=== PATIENT | male | born 1980 ===

== ENCOUNTER → 2022-12-14 | Outpatient (CLI) | payer OTHER | END | disposition home or self-care (01) | LOC: LABPAT 14:27 | PROVIDERS: ATTEND Orthopaedic Surgery | DX: Z22.322 Carrier or suspected carrier of Methicillin resistant Staphylococcus aureus (principal); M43.16 Spondylolisthesis, lumbar region; M47.816 Spondylosis without myelopathy or radiculopathy, lumbar region; M48.061 Spinal stenosis, lumbar region without neurogenic claudication | CPT/HCPCS: 87070 ==

== ENCOUNTER 2022-12-20 09:14 | Inpatient (IN) | payer OTHER ==
[2022-12-15 10:21] VITALS: BMI 23.6
--- NOTE | 2022-12-20 06:56 | P.HPOR ---
History of Present Illness H&P Date: 12/14/22 .D:Date: 12/14/22 : 04:16pm .T:Title: *[facility]... COPY... Date of :[birth year] Allergies: Age: 42 year Height: 5'10" Weight: 170 lbs BMI: 24.39 kg/m2 Occupation: Tech VAS: 7 CHIEF COMPLAINT: 1 week pre operative appointment lumbar (L4-L5) Decompression and Fusion minimal invasive Two years prior. NA Duration of current treatment regiment: 2 years HISTORY : Xrays brought xrays from outside facility which were reviewed. No New xrays taken in office Trauma or injury yes work Work-Related yes Pain description dull, sharp, throbbing , increasing . Location posterior Activity Modification yes Hand Dominance right TREATMENTS COMPLETED: 6 weeks of PT completed? Month and Year of last PT date? Yes How many sessions? >20 Did it help? No Physician recommended home exercise completed? Duration of HEP course: yes Medications yes List: NOrco, Motrin, Tylenol, Flexeril, Gabapentin Alternative interventions Chiropractic: No Massage therapy: yes R.I.C.E: yes Brace: Yes How long was brace worn? *3 mo Did it help? No Injections Yes How many? Unknown Did they help? No RFA: No SUBJECTIVE: Today Mr. Adler presents to the office today for a pre operative appointment lumbar (L4-L5) Decompression and Fusion minimal invasive. The patient notes pain that radiates into the buttocks and bilateral lower extremities. He also notes numbness and tingling in bilateral lower extremities. Patient has trialed injections, electrostimulation, chiropractor, tens unit and acupuncture for pain with no relief. he takes norco and meloxicam for pain relief. He ambulates independently. He states it all started when he was on duty, he states the details of which are classified, but he sustained a violent twisting thowring type motion of a large weight that caused him to have severe pain. He has worked through it as much as possible. Seen multiple different specialist for it as well as surgeons. He has tried to put off surgery for as long as possible with shots, PT, medications but at this point cannot continue how he is. He denies any bowel or bladder issues. Denies any perineal numbness/tingling. This is significantly affecting his personal life. He can no longer run like he used to be able to and enjoyed. It is affecting his intimate relationship with his as he has pain while they engage in sexual activities. He cannot do his normal routine due to debility and pain. HP[: Today Mr. Adler presents to the office on 11/10/2022 for an evaluation regarding his lower back pain. The patient notes pain that radiates into the buttocks and bilateral lower extremities. He also notes numbness and tingling in bilateral lower extremities. Patient has trialed injections, electrostimulation, chiropractor, tens unit and acupuncture for pain with no relief. he takes norco and meloxicam for pain relief. He ambulates independently. He states it all started when he was on duty, he states the details of which are classified, but he sustained a violent twisting throwing type motion of a large weight that caused him to have severe pain. He has worked through it as much as possible. Seen multiple different specialist for it as well as surgeons. He has tried to put off surgery for as long as possible with shots, PT, medications but at this point cannot continue how he is. He denies any bowel or bladder issues. Denies any perineal numbness/tingling. This is significantly affecting his personal life. He can no longer run like he used to be able to and enjoyed. It is affecting his intimate relationship with his as he has pain while they engage in sexual activities. He cannot do his normal routine due to debility and pain. HISTORY: The patients' past social, medical, family, surgical history, as well as review of systems, have been reviewed. Please refer to the Neurosurgery History and Physical form that has been scanned in to our electronic medical record system. 16 points review of systems completed and as stated in HPI, all other systems reviewed are negative. P3 Social History: Smoking: never a smoker P3 Alcohol: occasional alcohol P3 Alcohol Amount: 1-2 drinks/wk P3 O4Cswyct History: Mother: alive & well. P2 Father: alive & well. P2 Sibling(s): alive & well. P2 P2 Past Medical History: P1 PAST MEDICAL HISTORY: HTN ASTHMA P1 Surgical / Procedural History: 3 2019, 2007, 2006 P1 P1 Current Medications: Rx: HYDROcodone 7.5 mg-acetaminophen 325 mg tablet Ref: 0 Instructions: take 1 tablet by oral route every 6 hours as needed for pain Rx: lisinopriL 10 mg-hydrochlorothiazide 12.5 mg tablet Ref: 0 Instructions: take 1 tablet by oral route once daily Rx: loratadine 10 mg tablet Ref: 0 Instructions: take 1 tablet (10 mg) by oral route once daily Rx: meloxicam 15 mg tablet Ref: 0 Instructions: take 1 tablet (15 mg) by oral route once daily P1 PHYSICALEXAMINATION: General: Awake, alert, appropriate for age, in no acute distress. HEENT: No unusual neck masses around region of lateral neck triangle, thyroid, supraclavicular groove Extremities: Skin warm and dry without acute lesions, coloration, temperature, skin intact, no tenderness or erythema Integument: Hairy patches: ABSENT Dorsal skin dimples: ABSENT Cafe au lait spots: ABSENT Surgical incisions: No back incisions Palpation: Please see Pain drawing on Intake sheet for further detail. Midline spinal tenderness: No E6 Cervical Tenderness: No E6 Paralumbar tenderness: Yes E6 Parathoracic tenderness: No E6 Buttocks tenderness: No E6 POSTURAL and MUSCULO-SKELETAL EVALUATION: Coronal Balance: NEUTRAL Recumbent testing: Patient is able to lay flat on back Sagittal Balance: NEUTRAL Shoulder Profile: LEVEL Pelvic Girdle: LEVEL Neck ROM: UNRESTRICTED Lumbar ROM: RESTRICTED due to pain Shoulder ROM: Symmetrical Hip ROM: Symmetrical Knee ROM: Symmetrical Hands: Normal appearance, symmetrical Feet: Normal appearance, Symmetrical VASCULAR STATUS : LEFT RIGHT Wrist Pulses INTACT INTACT Pedal Pulses (Dors. pedis & post.tibialis) INTACT INTACT Color NORMAL NORMAL Edema Absent Absent NEUROLOGIC EXAMINATION: Mental Status:Awake and alert, fully oriented, with normal attention, concentration and memory, and fluent, appropriate speech. Cranial Nerves: I: Olfactory not tested. II: Visual acuity normal, no visual field deficit noted with confrontation. III,IV: Normal pupillary reflexes & intact extraocular movements without nystagmus. V,: Intact symmetrical facial sensation. VII: Intact symmetrical facial motor movement VIII: Hearing intact. IX,X: Intact gag, swallow, & normal voice. XI: Sternocleidomastoid, trapezius function intact. XII: Tongue midline with normal movements. L'hermitte's Sign: Negative / absent Spurling'Sign: Absent bilaterally. Cubital percussion test: Absent bilaterally. Vitale-Tinel sign - Carpal region: Absent bilaterally. Straight Leg Raising: Pos on the Right Crossed straight leg raise: negative O8 MOTOR EXAM (0-5/5, N/T Muscle appearance: Symmetrical, without signs of atrophy or dystrophy UPPER EXTREMITY RIGHT LEFT Shoulder Abduction 5/5 5/5 Biceps 5/5 5/5 Triceps 5/5 5/5 Wrist Extension 5/5 5/5 Hand Intrnsics 5/5 5/5 Algebra Tutor 5/5 5/5 Hand and finger dexterity intact bilaterally? yes Disdiadochokinesis examination negative bilaterally? yes LOWER EXTREMITY RIGHT LEFT Hip Flexion 5/5 5/5 Knee Extension 5/5 5/5 Knee Flexion 4+/5 4+/5 Dorsiflexion 4+/5 4+/5 Plantarflexion 4+/5 4+/5 EHL 4+/5 4+/5 FHL 4+/5 4+/5 Toe heel walk / heel-toe walk intact while maintaining satisfactory balance? yes Squatting/straightening w/o assistance to a min of 60 degree knee flexion? No Single leg stance: Trendelenburg sign negative bilaterally REFLEXES(0-4/2, NT)Upper Extremity Lower Extremity Right 2 2 Left 2 2 Pathological Reflexes RIGHT LEFT Vitale's Absent Absent Clonus Absent Absent Babinski Absent Absent Sensory system (0-4, N/T) Test type RU ALIVIA RL LL Joint-Position 2 2 2 2 Vibration 2 2 2 2 Pain & LT sense 2 2 2 2 Dermatomal Deficit: None None S1 L5-S1 Gait and Functional Evaluation: Ambulatory aids: Independent Romberg's test: Intact bilaterally Steady/unsteady Gait RADIOGRAPHIC STUDIES: XRay taken on 11/14/22 of Lumbar Spine: Images reviewed. these demonstrate a grade 1 mobile spondylolisthesis at L4-L5. On flexion-extension films this translates from 3 mm in the neutral to 6 mm on flexion. This reduces on extension to around 2-1/2 mm. There is disc height collapse as well as facet arthrosis which is noted. There is questionable pars defects. There are no other fractures noted. Otherwise lumbar alignment is maintained with good lumbar lordosis. Segmentally at L4 5 there is kyphotic deformity. MRI scan from 09/14/2022 of Lumbar Spine performed at an outside facility: Images Reviewed in office with the patient. L1-2 unremarkable L2-3 unremarkable L3-4 unremarkable L4-5 severe spondylotic changes with disc height loss disc degeneration disc desiccation. Grade 1 spondylolisthesis partially reduced in the supine film facet arthrosis and overgrowth with bilateral foraminal as well as central stenosis related to the changes described L5-S1 minor spondylotic changes with fish mouthing and facet arthrosis Alignment: maintained other than spondylolisthesis Coronal alignment: Maintained Fracture: None Lesion: None IMPRESSION: It was my pleasure to have seen and examined Bobby. I reviewed the patient's clinical syndrome, physical findings, and imaging studies during the appointment today. It is my impression that the patient has a diagnosis of. 1. L4-L5 grade 1 spondylolisthesis, unstable 2. lower extremity radiculopathy with paresthesias 3. mechanical low back pain 4. lower extremity weakness I outlined the natural course history without intervention and various interventional options. PLAN: Based on my findings I suggest the following course of action: - we discussed operative and nonoperative treatments at this point the patient has exhausted most nonoperative treatment protocols and at this point he is becoming debilitating the point of not being perform his activities daily living to his specification. He will like to pursue operative treatment of this which is reasonable I discussed treatment options with the patient, including operative and non- operative options, and they have elected to proceed with the following surgical procedure: lumbar (L4-L5) Decompression and Fusion minimal invasive The indications, risks, benefits, and alternatives to surgery were discussed with the patient at length. Specifically (but not limited to) the risks of infection, stiffness, recurrence of symptoms, need for revision surgery, local numbness, neurovascular injury, and blood clots were discussed. The patient's questions were answered. The decision to proceed was made. Consent will be obtained for the procedure. -Ambulate daily -Take medications as directed -Ice and rest for pain and swelling control. Surgical Procedure Risk Review Bobby Adler is a 42 year old male presenting for evaluation of low back pain and lower extremity radiculopathy and weakness due to injury while serving . It was my pleasure to have seen and examined Mr. Adler. In our visit today we have had a chance to go over subjective complaints, physical examination findings and treatments, including the natural course history without intervention and various interventional options. The imaging demonstrates . XRay taken on 11/14/22 of Lumbar Spine: Images reviewed. these demonstrate a grade 1 mobile spondylolisthesis at L4-L5. On flexion-extension films this translates from 3 mm in the neutral to 6 mm on flexion. This reduces on extension to around 2-1/2 mm. There is disc height collapse as well as facet arthrosis which is noted. There is questionable pars defects. There are no other fractures noted. Otherwise lumbar alignment is maintained with good lumbar lordosis. Segmentally at L4 5 there is kyphotic deformity. MRI scan from 09/14/2022 of Lumbar Spine performed at an outside facility: Images Reviewed in office with the patient. L1-2 unremarkable L2-3 unremarkable L3-4 unremarkable L4-5 severe spondylotic changes with disc height loss disc degeneration disc desiccation. Grade 1 spondylolisthesis partially reduced in the supine film facet arthrosis and overgrowth with bilateral foraminal as well as central stenosis related to the changes described L5-S1 minor spondylotic changes with fish mouthing and facet arthrosis Alignment: maintained other than spondylolisthesis Coronal alignment: Maintained Fracture: None Lesion: None On physical exam, Mr. Adler demonstrates Pain with motion of the low back, limited ROM, LE weakness, LE radiculopathy with some tensioning signs. Difficulty with ADLs. I explained to the patient that as his condition progresses it could cause Continued pain, progressive symptoms and worsening of symptoms. At this time, based on the patients imaging and physical exam, I recommend surgery in the form or a: L4-5 decompression and fusion minimally invasive . I discussed the risk and benefits of this procedure at length with Mr. Adler. The patient and his spouse/partneragreed to consider pursuing the procedure mentioned above. Plan: 1. L4-L5 decompression and fusion minimally invasive 2. Follow up with PCP for surgical clearance 3. Review of surgical risks and benefits as well as an educational packet on the proposed surgical procedure. Risks: All surgical procedures come with inherent risks, including those related to positioning, anesthesia, intraoperative findings, and postoperative complications. It is important to understand that surgery does not come with any guarantee of a successful outcome as complications and adverse events are always possible. The patient was given a handout in office today discussing the surgical procedure and risks associated with the intervention, both of which were discussed with the patient. These risks include but are not limited to the following: ? Experiencing same, different or even worse symptoms in back, neck, arms, or legs compared to before surgery. ? Requiring further surgery or other forms of treatment presently or at some time in the future at same or other levels of the intended spine surgery. ? On an extreme but fortunately relatively rare basis severe complication such as blindness, stroke, heart attack, temporary and/or permanent nerve injury, paralysis, coma, or may occur, sometimes without known explanation. ? Surgical complications may include but are not limited to risk of infection, fluid accumulation in the surgical dissection site, including a seroma or hematoma, that requires additional surgery, wound drainage, bleeding, new numbness or weakness, vision changes/loss, spinal fluid leakage, non-healing and/or infected incision, headaches, difficulty or inability to swallow, hoarseness, hemopneumothorax, pneumothorax, impotence, retrograde ejaculation, vaginal dryness; injury to nerves, spinal cord, blood vessels, lymphatics or other vital organs (i.e., bowel injury, injury to the great vessels); heterotopic bone formation; complications related to the hardware such as screws, rods, cages including misplaced hardware, device failure, instrumentation at the wrong spine level, hardware fracture/breakage, or hardware loosening; vertebral failure of the spinal column above or below the newly placed hardware; retained surgical instrumentations or devices and the need for further surgery. ? Medical risks of the planned spine surgery include but are not limited to generalized Infections to the whole body or local areas outside of the surgical site (sepsis), heart attack, bleeding, anaphylaxis, meningitis, seizure, epilepsy, hearing loss, burn cary, laceration of the head or other areas of the body, bruising, hypersensitivity of the skin, bladder over distension; allergic reaction; shoulder injury related to positioning; fat, blood and air clots to other areas of the body like heart, lungs, brain; failure of internal organs such as lungs, kidneys, liver and excessive bleeding. If blood transfusions are necessary, note that transfusions may cause intolerance reactions such as anaphylaxis or other complex reactions. Despite best efforts, the results of spine surgery might not heal in terms of bone, soft tissues such as skin, fascia, ligaments, and joints. Additionally, in order to achieve best possible results, spine surgery may be carried out beyond the initially planned levels and involve decompression, fusion including insertion of hardware at levels other than the original intended area of surgical interest change some portions of the procedure in order to ensure the best possible outcomes. With spine surgery and spinal fusion, there are different off label uses of instrumentation (devices, implants and hardware) as well as biological substances (bone morphogenic proteins, demineralized bone matrix) as well as using extra bone from allograft sources (i.e. cadaver bone) or autograft (iliac crest bone, ribs, or the spine itself). The patient has been given information about these practices and their inherent risks and benefits. [facility] Physician Assistants are medically trained surgical providers who function in the outpatient, inpatient, and operating room setting under the direct supervision of the attending surgeon.They assist in the operating room with direct supervision of the attending surgeons. The patient has had a chance to review all the listed information, has been given print outs detailing this information, and has had all his/her questions answered to their satisfaction. It was my pleasure to have seen and examined Mr. Adler. In our visit today we have had a chance to go over my understanding of our patient's current condition, the natural course history without intervention and various interventional options. Questions were invited and answered, and the patient wishes to proceed as outlined above. I have seen and examined the patient for 25 minutes and we have spent more than 50% of the time in repeat and detailed counseling about the patient's condition, its natural course history with out and as much as can be predicted with surgery and re-review of various surgical treatment options. In conclusion,Mr. Adler and his spouse/partner requested we proceed with the above suggested surgery and are willing to accept risks and limitations of the suggested surgery as nature of the disease process and our best attempts at treatment for the condition. Thank you again for allowing us to be part of your patient's care. Please don't hesitate to contact me if you have any further questions. Follow-up: DEL Post procedure Patient Education: (Informational booklet, instructions, etc) given at today's appointment: DEL Yes .ED:Patient Education: Y Medications Reviewed: YES In our visit today Mr. Adler and I have had a chance to go over my understa nding of the patient's current condition, the natural course history without intervention and various interventional options. Questions were invited and answered, and the patient wishes to proceed as outlined above. I will be sure to keep you updated afterMr. Adler returns here for further follow-up. Thank you again for your referral. Please do not hesitate to contact me if you have any further questions. Signed and authenticated by: Michael Murillo [facility] [address] [place] [address] This message is confidential, intended only for the named recipient(s) and may contain information that is privileged or exempt from disclosure under applicable law. If you are not the intended recipient(s), you are notified that the dissemination, distribution or copying of this information is strictly prohibited. If you received this message in error, please notify the sender then delete this message. Patient verbalizes understanding of the information discussed. The above note was initiated by Bouchra La, physician recording veterinary assistant technician for Dr. Michael García. This note has been reviewed by Dr. García, who has made his personal changes and impressions for this document. CC: Luigi Stone DO Past Medical History Past Medical History: Asthma, Hypertension, Skin Disorder Additional Past Medical History / Comment(s): ECZEMA. CHRONIC BACK PAIN. BRADYCARDIA AND ECTOPIC BEATS History of Any Multi-Drug Resistant Organisms: None Reported Past Surgical History: Appendectomy, Orthopedic Surgery Additional Past Surgical History / Comment(s): LEFT SHOULDER SURG. X3. EYE SURG. Past Anesthesia/Blood Transfusion Reactions: No Reported Reaction Past Psychological History: No Psychological Hx Reported Smoking Status: Never smoker Past Alcohol Use History: Occasional Past Drug Use History: None Reported - Past Family History Mother Family Medical History: No Reported History Medications and Allergies Home Medications Medication Instructions Recorded Confirmed Type Albuterol Inhaler [Ventolin Hfa 1 puff INHALATION DIRECTED PRN 12/15/22 12/15/22 History Inhaler] Ascorbic Acid [Vitamin C] 250 mg PO DAILY 12/15/22 12/15/22 History Cyclobenzaprine [Flexeril] 10 mg PO TID PRN 12/15/22 12/15/22 History Hydrocodone/Acetaminophen 1 tab PO Q8H PRN 12/15/22 12/15/22 History [Hydrocodone/Acetaminophen 7.5-325] Lisinopril-Hctz 10-12.5 mg 1 tab PO DAILY 12/15/22 12/15/22 History [Zestoretic 10-12.5] Loratadine 10 mg PO DAILY 12/15/22 12/15/22 History Melatonin 10 mg PO HS 12/15/22 12/15/22 History Meloxicam [Mobic] 15 mg PO DAILY 12/15/22 12/15/22 History Mometasone Furoate [Asmanex 200 1 puff INHALATION DIRECTED 12/15/22 12/15/22 History MCG Hfa] Multivitamins, Thera [Multivitamin 1 tab PO DAILY 12/15/22 12/15/22 History (formulary)] Vitamin B Complex 1 each PO DAILY 12/15/22 12/15/22 History Allergies Allergy/AdvReac Type Severity Reaction Status Date / Time tramadol AdvReac severe Verified 12/15/22 09:59 mood swings Physical Examination Osteopathic Statement: *. No significant issues noted on an osteopathic structural exam other than those noted in the History and Physical/Consult.
[~2022-12-20 09:14] MED LIST: ACETAMINOPHEN TAB 500 MG TAB PO PRN; DEXAMETHASONE SOD PHOSPHATE 4 MG/ML 1 ML VIAL IV ONE; GABAPENTIN 300 MG CAP PO PRN; LIDOCAINE 1% (10MG/ML) FOR IV START INTRADERMA PRN; ONDANSETRON 4 MG/2 ML VIAL IVP ONE; ONDANSETRON 4 MG/2 ML VIAL IVP PRN; TRANEXAMIC ACID IN NACL,ISO-OS 1,000 MG in SALINE 1 100ML.BAG IVPB PRN
[2022-12-20] MEDS: LACTATED RINGERS 1,000 ML IV SCH (09:49)
[2022-12-20 10:47] LABS: Basophils % (A) 0 %; Eosinophils % (A) 1 %; HCT 43.4 % (39.0-53.0); HGB 15.2 gm/dL (13.0-17.5); Lymphocytes # (A) 1.3 k/uL (1.0-4.8); Lymphocytes % (A) 18 %; MCH 31.5 pg (25.0-35.0); MCHC 35.1 g/dL (31.0-37.0); MCV 89.6 fL (80.0-100.0); Mean Platelet Volume 8.3; Monocytes # (A) 0.4 k/uL (0-1.0); Monocytes % (A) 5 %; Neutrophils # (A) 5.1 k/uL (1.3-7.7); Neutrophils % (A) 73 %; Platelet Count 211 k/uL (150-450); RBC 4.84 m/uL (4.30-5.90); RDW 12.5 % (11.5-15.5); WBC 6.9 k/uL (3.8-10.6)
[2022-12-20 11:06] LABS: Partial Thromboplastin Time 22.6 sec (22.0-30.0); Prothrombin Time 10.9 sec (9.0-12.0)
[2022-12-20] MEDS ORDERED: MIDAZOLAM 2 MG/2 ML VIAL IVP ONE (11:19)
[2022-12-20 11:36] LABS: ALT 30 U/L (4-49); AST 29 U/L (17-59); African American GFR (CKD) >90 (>60 ml/min/1.73 sqM); Albumin 4.5 g/dL (3.5-5.0); Alkaline Phosphatase 56 U/L (38-126); Anion Gap 7 mmol/L; Blood Urea Nitrogen 15 mg/dL (9-20); Calcium 9.8 mg/dL (8.4-10.2); Carbon Dioxide 29 mmol/L (22-30); Chloride 102 mmol/L (98-107); Glucose 87 mg/dL (74-99); Non-African American GFR(CKD) >90 (>60 ml/min/1.73 sqM); Sodium 138 mmol/L (137-145); Total Bilirubin 0.9 mg/dL (0.2-1.3); Total Protein 7.1 g/dL (6.3-8.2)
[2022-12-20] MEDS ORDERED: ROCURONIUM 10 MG/ML (5 ML VIAL) IV ONE (12:16)
[2022-12-20] MEDS ORDERED: GLYCOPYRROLATE 0.2 MG/ML 2 ML VIAL ONE (12:16)
[2022-12-20] MEDS ORDERED: PROPOFOL 10 MG/ML 20 ML VIAL IV ONE (12:16)
[2022-12-20] MEDS ORDERED: KETAMINE 10 MG/ML 20 ML VIAL ONE (12:16)
[2022-12-20] MEDS ORDERED: PHENYLEPHRINE-0.9% NACL SYG 1,000 MCG/10 ML SYRINGE ONE (12:16)
[2022-12-20] MEDS ORDERED: LIDOCAINE 2% INJ 20 MG/ML (2 ML VIAL) ONE (12:16)
[2022-12-20] MEDS ORDERED: MIDAZOLAM 2 MG/2 ML VIAL ONE (12:16)
[2022-12-20] MEDS ORDERED: fentaNYL (PF) 50 MCG/ML 2 ML AMP ONE (12:16)
[2022-12-20] MEDS ORDERED: TRANEXAMIC ACID IN NACL,ISO-OS 1,000 MG/100 ML BAG ONE (12:16)
[2022-12-20] MEDS ORDERED: NEOSTIGMINE 1 MG/ML 10 ML VIAL ONE (12:16)
[2022-12-20] MEDS ORDERED: SUCCINYLCHOLINE CHLORIDE 200 MG/10 ML VIAL IV ONE (12:16)
[2022-12-20] MEDS ORDERED: BUPIVACAINE (PF) 0.25% 30 ML VIAL SQ ONE ×2 (13:00→14:29)
[2022-12-20] MEDS ORDERED: GELATIN SPONGE,ABSORB (LARGE) 1 EACH SPONGE MISCELLANE ONE (13:01)
[2022-12-20] MEDS ORDERED: THROMBIN (BOVINE) 5,000 UNIT VIAL MISCELLANE ONE (13:01)
[2022-12-20] MEDS ORDERED: LACTATED RINGERS 1,000 ML IV ONE (14:29)
--- NOTE | 2022-12-20 14:55 | FL ---
EXAMINATION TYPE: FL guidance operating room DATE OF EXAM: 12/20/2022 HISTORY: Fluoroscopy time 1 minute and 58 seconds of fluoroscopy provided. [id number] DAP. IMPRESSION: 1. Fluoroscopy time.
--- NOTE | 2022-12-20 14:56 | XR ---
EXAM TYPE: LUMBAR SPINE X RAY SERIES COMPARISON: NONE HISTORY: Intraoperative lumbar fusion TECHNIQUE: A limited resolution intraoperative images submitted views are submitted. FINDINGS: Intraoperative images demonstrate surgical changes which appear in near anatomic alignment. Her graph is IMPRESSION: 1. Intraoperative images
[2022-12-20] MEDS: HYDROmorphone 0.5 MG/0.5 ML SYRINGE IVP PRN ×4 (15:08→15:53)
[2022-12-20] MEDS ORDERED: MAGNESIUM HYDROXIDE 2,400 MG/10 ML CUP PO PRN (15:15)
[2022-12-20] MEDS ORDERED: HYDROcodone/APAP 5-325MG 1 EACH TAB PO PRN (15:15)
[2022-12-20] MEDS ORDERED: SENNOSIDES-DOCUSATE SODIUM 1 EACH TAB PO PRN (15:15)
[2022-12-20] MEDS ORDERED: ALBUTEROL NEBULIZED 2.5 MG/3 ML INHALATION ONE (15:27)
[2022-12-20] MEDS: CYCLOBENZAPRINE 10 MG TAB PO PRN ×2 (15:28→23:05)
[2022-12-20] MEDS: GABAPENTIN 300 MG CAP PO SCH ×2 (16:43→23:06)
[2022-12-20] MEDS: HYDROcodone/APAP 10-325MG 1 EACH TAB PO PRN ×2 (16:50→23:05)
--- NOTE | 2022-12-20 17:39 | P.CONS ---
History of Present Illness - Reason for Consult Consult date: 12/20/22 HTN Requesting physician: Michael García - Chief Complaint back pain - History of Present Illness Patient is a 42-year-old male with a history of hypertension, asthma, and chronic low back pain who presented for elective minimally invasive L4 5 decompression and fusion. Patient underwent the procedure without any immediate postoperative complications. Patient seen and examined at bedside. He currently is having 9 out of 10 back pain. He denies any chest pain, shortness breath, nausea, vomiting, lightheadedness, or headache. Vital signs reviewed General: nontoxic, no distress, appears at stated age Derm: warm, dry Eyes: EOMI, no lid lag, anicteric sclera, pupils equal round reactive to light ENT: Nose and ears atraumatic, no thrush, no pharyngeal erythema Cardiovascular: S1S2 reg, no murmur, positive posterior tibial pulse bilateral, no edema, capillary refill less than 2 seconds Lungs: clear to auscultation bilateral, no rhonchi, no rales, no wheeze, no accessory muscle use Abdominal: soft, nontender to palpation, no guarding, no appreciable organomegaly, normal bowel sounds Ext: no gross muscle atrophy, muscle strength 5 out of 5 in all 4 extremities, no contractures Neuro: CN II-XII grossly intact, light touch intact all 4 extremities, finger to nose within normal limits, Psych: Alert, oriented, appropriate affect Assessment: 42-year-old male here for L4 5 minimally invasive decompression and fusion Hypertension Asthma without exacerbation History of bradycardia Eczema Chronic back pain Imaging: None Data Review: Postoperative signs reviewed and pulse 65, respirations 16, blood pressure 130/64, O2 sat 99% on room air Preoperative outpatient blood work reviewed and hemoglobin 13, hematocrit 43.3 Plan: -Resume home loratadine 10 mg daily, lisinopril 10 mg daily. Hold hydrochlorothiazide component giving fluid shifts that likely happened intraoperatively -Add albuterol 2.5 mg every 4 hours when necessary shortness of breath -Patient will need CBC and CMP in the morning giving the invasive nature of this procedure and potential for blood loss. Thank you for allowing us to participate in the care of this pleasant patient. Do not hesitate to contact us with questions. Someone can be reached from the [facility] hospitalist group all hours of the day at [phone] or via perfect serve. This dictation was prepared using [employer] voice recognition software. Though every attempt is made to correct errors during during dictation some may still exist. Past Medical History Past Medical History: Asthma, Hypertension, Skin Disorder Additional Past Medical History / Comment(s): ECZEMA. CHRONIC BACK PAIN. BRADYCARDIA AND ECTOPIC BEATS History of Any Multi-Drug Resistant Organisms: None Reported Past Surgical History: Appendectomy, Orthopedic Surgery Additional Past Surgical History / Comment(s): LEFT SHOULDER SURG. X3. EYE SURG. Past Anesthesia/Blood Transfusion Reactions: No Reported Reaction Past Psychological History: No Psychological Hx Reported Smoking Status: Never smoker Past Alcohol Use History: Occasional Past Drug Use History: None Reported - Past Family History Mother Family Medical History: No Reported History Medications and Allergies Home Medications Medication Instructions Recorded Confirmed Type Albuterol Inhaler [Ventolin Hfa 1 puff INHALATION DIRECTED PRN 12/15/22 12/20/22 History Inhaler] Ascorbic Acid [Vitamin C] 250 mg PO DAILY 12/15/22 12/20/22 History Cyclobenzaprine [Flexeril] 10 mg PO TID PRN 12/15/22 12/20/22 History Hydrocodone/Acetaminophen 1 tab PO Q8H PRN 12/15/22 12/20/22 History [Hydrocodone/Acetaminophen 7.5-325] Lisinopril-Hctz 10-12.5 mg 1 tab PO DAILY 12/15/22 12/20/22 History [Zestoretic 10-12.5] Loratadine 10 mg PO DAILY 12/15/22 12/20/22 History Melatonin 10 mg PO HS 12/15/22 12/20/22 History Meloxicam [Mobic] 15 mg PO DAILY 12/15/22 12/20/22 History Mometasone Furoate [Asmanex 200 1 puff INHALATION DIRECTED 12/15/22 12/20/22 History MCG Hfa] Multivitamins, Thera [Multivitamin 1 tab PO DAILY 12/15/22 12/20/22 History (formulary)] Vitamin B Complex 1 each PO DAILY 12/15/22 12/20/22 History Allergies Allergy/AdvReac Type Severity Reaction Status Date / Time tramadol AdvReac severe Verified 12/20/22 09:50 mood swings Physical Exam Osteopathic Statement: *. No significant issues noted on an osteopathic structural exam other than those noted in the History and Physical/Consult. Vitals: Vital Signs Temp Pulse Resp BP Pulse Ox 12/20/22 16:15 65 16 138/64 99 12/20/22 16:00 65 16 144/67 99 12/20/22 15:45 80 16 161/74 99 12/20/22 15:30 76 12 117/63 99 12/20/22 15:15 83 12 134/70 100 12/20/22 15:00 78 12 127/69 100 12/20/22 14:51 97.2 F L 95 12 139/72 100 12/20/22 11:21 66 16 98 12/20/22 09:53 98.4 F 61 18 139/84 99 Intake and Output 12/20/22 12/20/22 12/20/22 06:59 14:59 22:59 Intake Total 2150 Output Total 550 Balance 1600 Intake: IV 2150 Output: Urine 450 Estimated Blood Loss 100 Other: Weight 78.9 kg Results CBC & Chem 7: 12/20/22 10:26 12/20/22 10:26
[2022-12-20] MEDS: HYDROmorphone 1 MG/ML 1 ML SYRINGE IVP PRN ×2 (18:10→20:32)
--- NOTE | 2022-12-20 18:25 | CT ---
EXAMINATION TYPE: CT lumbar spine wo con CT DLP: 825 mGycm, Automated exposure control for dose reduction was used. DATE OF EXAM: 12/20/2022 5:51 PM COMPARISON: 11/14/2022. CLINICAL INDICATION:Male, 42 years old with history of s/p L4-L5 MIS TLIF; PHH, s/p L4-L5 MIS TLIF TECHNIQUE: Multiple axial images were obtained from the midportion of T11 through the sacroiliac catia nts. Soft tissue and bone windows in coronal and sagittal planes were obtained and reviewed. Contrast used: none. Oral contrast used: none. FINDINGS: Postsurgical changes to the lumbar spine with fixation hardware at L4 and L5 discectomy at L4-L5. Burak dware limits evaluation at these levels. Hardware appears intact. No evidence of fracture. Postsurgical changes in the soft tissues with foci of gas present. Posterior back skin valerie are pr esent. Mild atherosclerosis of the arterial vasculature. IMPRESSION: Postsurgical changes without evidence of immediate post operative complication.
[2022-12-20] MEDS: ACETAMINOPHEN TAB 325 MG TAB PO SCH (20:32)
[2022-12-20] MEDS: BUDESONIDE 1 MG/2 ML NEBU INHALATION SCH (20:49)
[2022-12-20] MEDS: ALBUTEROL NEBULIZED 2.5 MG/3 ML INHALATION PRN (20:52)
[2022-12-20] MEDS: MELATONIN 5 MG TABLET PO SCH (23:05)
[2022-12-21] MEDS: HYDROmorphone 1 MG/ML 1 ML SYRINGE IVP PRN ×6 (00:07→20:49)
[2022-12-21] MEDS: ACETAMINOPHEN TAB 325 MG TAB PO SCH ×4 (02:10→18:11)
[2022-12-21] MEDS: CYCLOBENZAPRINE 10 MG TAB PO PRN (03:59)
[2022-12-21] MEDS: HYDROcodone/APAP 10-325MG 1 EACH TAB PO PRN ×4 (05:52→22:52)
[2022-12-21 06:04] LABS: HCT 37.5 % (39.0-53.0); MCH 31.7 pg (25.0-35.0); MCHC 34.8 g/dL (31.0-37.0); MCV 91.1 fL (80.0-100.0); Mean Platelet Volume 7.8; Platelet Count 184 k/uL (150-450); RBC 4.11 m/uL (4.30-5.90); RDW 12.7 % (11.5-15.5); WBC 12.9 k/uL (3.8-10.6)
[2022-12-21 06:21] LABS: African American GFR (CKD) >90 (>60 ml/min/1.73 sqM); Anion Gap 5 mmol/L; Blood Urea Nitrogen 16 mg/dL (9-20); Calcium 8.6 mg/dL (8.4-10.2); Carbon Dioxide 28 mmol/L (22-30); Chloride 97 mmol/L (98-107); Glucose 122 mg/dL (74-99); Non-African American GFR(CKD) >90 (>60 ml/min/1.73 sqM); Potassium 3.8 mmol/L (3.5-5.1); Sodium 130 mmol/L (137-145)
[2022-12-21] MEDS: LACTATED RINGERS 1,000 ML IV SCH (06:28)
--- NOTE | 2022-12-21 07:10 | P.OP ---
Date of Procedure: 12/20/22 Preoperative Diagnosis: 1. L4-5 grade I-II spondylolisthesis, unstable 2. LBP 3. LE radiculopathy Postoperative Diagnosis: 1. L4-5 grade I-II spondylolisthesis, unstable 2. LBP 3. LE radiculopathy Procedure(s) Performed: 1. L4-5 posteriolateral and interbody fusion (74859) 2. L4-5 instrumentation (32683) 3. Insertion of interbody device (31660) 4. Decompression of nerual elements and placement of cage (45817) Use of IONM Use of microscope Implants: -Globus Creo screw and john system -Mirabus expandable cage x1 -iFactor, Allocell, MagnatOs Anesthesia: GETA Surgeon: Michael García Toaster Operator #1: Placido Law (Was present and assisted with all aspects of the case from positioning to dressing placement) Estimated Blood Loss (ml): 100 IV fluids (ml): 1,500 Urine output (ml): 450 Pathology: none sent Condition: stable Disposition: PACU Indications for Procedure: Bobby Adler is a 42 year old male presenting for evaluation of low back pain and lower extremity radiculopathy and weakness due to injury while serving . It was my pleasure to have seen and examined Mr. Adler. In our visit today we have had a chance to go over subjective complaints, physical examination findings and treatments, including the natural course history without intervention and various interventional options. The imaging demonstrates . XRay taken on 11/14/22 of Lumbar Spine: Images reviewed. these demonstrate a grade 1 mobile spondylolisthesis at L4-L5. On flexion-extension films this translates from 3 mm in the neutral to 6 mm on flexion. This reduces on extension to around 2-1/2 mm. There is disc height collapse as well as facet arthrosis which is noted. There is questionable pars defects. There are no other fractures noted. Otherwise lumbar alignment is maintained with good lumbar lordosis. Segmentally at L4 5 there is kyphotic deformity. MRI scan from 09/14/2022 of Lumbar Spine performed at an outside facility: Images Reviewed in office with the patient. L1-2 unremarkable L2-3 unremarkable L3-4 unremarkable L4-5 severe spondylotic changes with disc height loss disc degeneration disc desiccation. Grade 1 spondylolisthesis partially reduced in the supine film facet arthrosis and overgrowth with bilateral foraminal as well as central stenosis related to the changes described L5-S1 minor spondylotic changes with fish mouthing and facet arthrosis Alignment: maintained other than spondylolisthesis Coronal alignment: Maintained Fracture: None Lesion: None On physical exam, Mr. Adler demonstrates Pain with motion of the low back, limited ROM, LE weakness, LE radiculopathy with some tensioning signs. Difficulty with ADLs. I explained to the patient that as his condition progresses it could cause Continued pain, progressive symptoms and worsening of symptoms. At this time, based on the patients imaging and physical exam, I recommend surgery in the form or a: L4-5 decompression and fusion minimally invasive . I discussed the risk and benefits of this procedure at length with Mr. Adler. The patient and his spouse/partneragreed to consider pursuing the procedure mentioned above. Plan: 1. L4-L5 decompression and fusion minimally invasive Description of Procedure: L4-L5 MIS TLIF The patient was seen and examined in the preoperative area. All preoperative protocols were followed. Informed consent was obtained risks and benefits of the procedure were discussed at length. Risks including bleeding infection damage to the surrounding tissue and risk of reoperation were discussed with the patient. Risk of anesthesia up to and including was a discussed with the patient. These are outlined in the risk review. They were willing to accept these risks and all the risks of surgery. The patient was given a weight-based dose of antibiotics in the form of 2 g Ancef. The patient was seen and evaluated by the anesthesia team who deemed them fit for surgery. The site was marked, the patient was willing to proceed with the procedure. The patient was transferred to the operative suite by the Department of anesthesia. They were then drifted off to sleep by the department anesthesia and GETA was performed. The patient tolerated this well. Dunn catheter was placed by nursing staff, a-traumatically. Once confirmation of lines and ventilation the patient was transferred to a prone Chele table very carefully. All bony prominences including wrists, elbows, axilla, chest, hips, and thighs, and feet were padded very well. Special attention was paid to the genitalia, and these were padded accordingly. SCDs were placed on bilateral lower extremities and were connected. Arms were well padded and placed on arm boards up and out in the 90/90 position. Once in position, again we confirmed good ventilation capabilities and that lines were running appropriately. The patients Lumbar spine was then exposed. 1010s were placed outlining the incision site. Standard alcohol was used to clean the incision site and allowed to dry. C-arm was used to needle localize the pedicles at L4-5 and bio-nafisa the patient and confirm level for incision which was marked with a skin marker. Operative briefing was performed with all teams and everyone in agreement to proceed. The patient was then prepped and draped in a normal sterile fashion. Timeout was then performed, and all parties agreed with the procedure to be pe rformed. C arm was then used to target pedicles bilaterally at L4 and L5. Jamshidi was used and bi-planar fluoroscopy was used to access L4 pedicles. Once accessed wires were placed in their void. This was repeated at L5 bilaterally. Skin incision was then made along these wires and perfect scalpel was used over the wire to create a path and measure screw length. Screws were then placed over wires on the contralateral side. Once screw was at the back of the body wire was removed. The screws were confirmed to be in good position on AP and lateral. We then tested screws and they all tested above 20 mA. Attention was then turned to interbody fusion at L4-5. Tubular retractor system was placed at the interspace of L4-5 using biplanar c arm. Once in position and dilated up to 26mm tube it was locked to the bed and confirmed in good position. Microscope was then brought in for visualization. Limited myomectomy was performed and laminectomy, complete facetectomy and foraminotomy performed at L4-5 using high speed ramirez and Kerrison rongure. The ligamentum was removed and dural sac decompressed. Exiting and traversing roots visualized and decompressed. Neural elements were then protected, and disc space accessed with an osteotome. Sequential shaving then done under lateral imaging and complete discectomy performed using leni, pituitary and curette. Once good bleeding endplates accomplished and good height worship with trials, a combination of autograft, allograft and synthetic placed anterior in the disc space. The cage was then selected and impacted into place under lateral imaging. The cage was then expanded restoring height, lordosis and alignment. The cage was backfilled with bone graft through a funnel. The surfacing machine operator removed and area inspected. Good cage placement, stable cage and no injuries. Area was irrigated copiously, and meticulous hemostasis achieved. The tubular retractor was then removed under direct visualization. Screws were then selected and placed over the previously placed wires on the ipsilateral side. This was done in the fashion described above. Screws were then tested, and all tested above 20 mA. Shells were then placed on the tabs. John length was then measured, and rods selected. They were then placed through the MIS tabs, subfascial. These were then locked into place with set screws and final tightened. John holders removed and images taken showing good placement of rods good lordosis and worship of height. Tabs were broken off. Wounds were then copiously irrigated with NSS. [place] used for TP decortication and mixture of MagnatOs, allograft and autograft packed posterolateral. Facia was then closed with 0 Vircyl on a Scorpion suture passer for MIS closure. Deep subq closed with 0 Vicryl. Superficial subq closed with 2-0 Vicryl and skin with valerie. Wound edges approximated very well. Wound was then cleaned with alcohol and dried. Wounds dressed in Optifoam dressings. The patient was then transferred off the table back to their hospital bed a- traumatically. They were extubated by the department of anesthesia. They were then transferred to PACU in stable condition having tolerated the procedure with no complications.
--- NOTE | 2022-12-21 08:10 | P.PN ---
Subjective Progress Note Date: 12/21/22 Principal diagnosis: 1. L4-L5 grade 1 spondylolisthesis, unstable 2. lower extremity radiculopathy with paresthesias 3. mechanical low back pain 4. lower extremity weakness Patient seen and examined this morning. Patient was resting comfortably in bed. He reports that he has had some urinary retention and has been straight cathed x2, and now has a indwelling Kwon catheter present. Patient states he did have a rough night with pain management reporting a 9/10. Medications have been adjusted. Patient states he has been up since the procedure and states he feels improvement in his legs. Encouraged patient to continue with physical therapy today. Patient has been afebrile, denies nausea/vomiting, or chest pain. Objective - Vital Signs Vital signs: Vital Signs Temp 97.6 F 12/21/22 01:58 Pulse 70 12/21/22 01:58 Resp 18 12/20/22 19:07 BP 126/62 12/21/22 01:58 Pulse Ox 97 12/21/22 01:58 FiO2 Intake & Output 12/20/22 12/21/22 12/21/22 18:59 06:59 18:59 Intake Total 2150 340 Output Total 550 4000 Balance 1600 -3660 Weight 78.9 kg Intake: IV 2150 Intake, IV Titration 340 Amount Lactated Ringers 1,000 ml 240 @ 20 mls/hr IV .Q24H NELLIE Rx#:[id number] ceFAZolin 2 gm In Sodium 100 Chloride 0.9% 50 ml @ 100 mls/hr IVPB Q8H NELLIE Rx#: [id number] Output: Urine 450 3250 Uretheral (Kwon) 1700 Post Void Residual 750 Estimated Blood Loss 100 Other: Voiding Method Urinal - Exam Physical Examination General: The patient is awake and alert, in no acute distress Skin: Skin is warm and dry with no obvious rashes or lesions. Surgical incision lumbar spine, dressing is clean dry and intact. Eye: Pupils are equal, round and reactive to light, extra-ocular movements are intact; there is normal conjunctiva bilaterally. Neck: The neck is supple, there is no tenderness and ROM intact. Cardiovascular: There is a regular rate and rhythm. No murmur, rub or gallop is appreciated. Respiratory: Lungs are clear to auscultation, respirations are non-labored, breath sounds are equal. Gastrointestinal: Soft, non-distended, non-tender abdomen. Back: There is no tenderness to palpation in the midline, paralumbar, parathoracic or buttocks region. There is no obvious deformity . Musculoskeletal: ROM limited secondary to pain and stiffness from surgical procedure. Muscle strength in all major muscle groups of bilateral upper extremities 5/5, bilateral lower extremities 4/5. Neurological: CN 2-12 intact. There are no obvious motor or sensory deficits. Movement and coordination equal and intact. Sensory exam to light touch intact C5-T1 and intact from L2-S1. Reflexes 2/4 in bilateral upper and lower extremities. Negative Hoffmans, babinski, and clonus signs. Psychiatric: Cooperative, appropriate mood & affect, normal judgment. - Labs CBC & Chem 7: 12/21/22 05:36 12/21/22 05:36 Labs: Abnormal Lab Results - Last 24 Hours (Table) 12/21/22 12/21/22 Range/Units 05:36 05:36 WBC 12.9 H (3.8-10.6) k/uL RBC 4.11 L (4.30-5.90) m/uL Hct 37.5 L (39.0-53.0) % Sodium 130 L (137-145) mmol/L Chloride 97 L (98-107) mmol/L Glucose 122 H (74-99) mg/dL Assessment and Plan Assessment: Postop day 1: L4-L5 Minimally invasive TLIF 1. L4-L5 grade 1 spondylolisthesis, unstable 2. lower extremity radiculopathy with paresthesias 3. mechanical low back pain 4. lower extremity weakness Plan: -Appreciate marketing operations consultant and team management. -Activity: Ambulate QID, OOB all meals, up and about, limit lifting bending twisting to less than 5 lbs. Use walker or cane if needed for stability. -Daily PT/OT, increase ambulation strength and balance. -Pain control: Medications adjusted -Meds: reviewed -GI ppx: senna, Miralax -Maintain kwon at this time. Flomax ordered. Consult placed for Urology. -DVT PPX: OK to restart Heparin tonight -Hygiene: Shower today. Maintain dressing clean and dry. Meticulous cleaning after BMs away from the incision site -Encourage IS 10x/hr -Dispo: Anticipate discharge home tomorrow with homecare within the next 24- 48hrs *I reviewed and discussed this case with my attending Dr. García, whom has reviewed this chart and films and is in agreement with assessment and plan of care as outlined above. I have personally seen and examined the patient, performed the documentation and the assessment and plan as written. Number of minutes spent on the visit: 15m.
[2022-12-21] MEDS: BUDESONIDE 1 MG/2 ML NEBU INHALATION SCH ×2 (09:28→22:11)
[2022-12-21] MEDS: CYCLOBENZAPRINE 10 MG TAB PO SCH ×3 (09:55→20:48)
[2022-12-21] MEDS: LORATADINE 10 MG TAB PO SCH (09:55)
[2022-12-21] MEDS: TAMSULOSIN 0.4 MG CAP.ER.24H PO SCH (09:55)
[2022-12-21] MEDS: GABAPENTIN 300 MG CAP PO SCH ×3 (09:56→20:48)
[2022-12-21] MEDS: lisinopriL 10 MG TAB PO SCH (09:59)
[2022-12-21] MEDS ORDERED: HYDROcodone/APAP 7.5-325MG 1 EACH TAB PO PRN (10:51)
--- NOTE | 2022-12-21 14:43 | P.PN ---
Subjective Progress Note Date: 12/21/22 (delayed charting seen at 1030) Patient is a 42-year-old male with a history of hypertension, asthma, and chronic low back pain who presented for elective minimally invasive L4 5 decompression and fusion. Patient underwent the procedure without any immediate postoperative complications. Patient seen and examined at bedside with significant other present. He reports he continues to have significant amounts of pain, he feels as though his pain medication regimen is not optimized. He denies any chest pain, shortness breath, nausea, vomiting. Vital signs reviewed General: nontoxic, mild distress secondary to pain, appears at stated age Cardiovascular: S1S2 reg, no murmur, positive posterior tibial pulse bilateral, Lungs: CTA bilateral, no rhonchi, no rales , no accessory muscle use Abdominal: soft, nontender to palpation, no guarding, no appreciable organomegaly Ext: no gross muscle atrophy, no edema, no contractures Neuro: CN II-XI grossly intact, no focal neuro deficits Psych: Alert, oriented, appropriate affect Assessment: 42-year-old male here for L4 5 minimally invasive decompression and fusion Urinary retention Hypertension Asthma without exacerbation History of bradycardia Eczema Chronic back pain Imaging: ET lumbar-postsurgical changes without any evidence of immediate postoperative complications Data Review: Vital signs reviewed temperature 98.3 pulse 74 respirations 17 and blood pressure 118/65 O2 sat 98% on room air Labs reviewed White blood cell count 12.9, sodium 130, chloride 97, glucose 122, serum osmolality was ordered and came back at 278 Plan: -Concern is that hyponatremia may be related to SIADH secondary to pain. We'll check urine sodium, urine osmolality, serum osmolality. Optimize pain control. Hold hydrochlorothiazide component given hyponatremia. Check BMP at 3 PM and in AM. - loratadine 10 mg daily, lisinopril 10 mg daily. -Add albuterol 2.5 mg every 4 hours when necessary shortness of breath -Dunn catheter -Flomax -Given that the patient was using Reinbeck 7.5, 325 one tablet every 8 hours at home prior to surgery will up his Reinbeck for moderate pain to 7.5 every 6 hours when necessary pain. Continue with scheduled Flexeril 10 mg 3 times a day. Aristeo apentin 300 mg 3 times a day. I did discuss with the nurse taking on top of his pain medications as there is likely a pain component to his hyponatremia. - CBC in AM Thank you for allowing us to participate in the care of this pleasant patient. Do not hesitate to contact us with questions. Someone can be reached from the [facility] hospitalist group all hours of the day at [phone] or via perfect serve. This dictation was prepared using [employer] voice recognition software. Stiven grimm every attempt is made to correct errors during during dictation some may still exist. Objective - Vital Signs Vital signs: Vital Signs Temp 98.2 F 12/21/22 13:39 Pulse 81 12/21/22 13:39 Resp 17 12/21/22 13:39 BP 125/67 12/21/22 13:39 Pulse Ox 97 12/21/22 13:39 FiO2 Intake & Output 12/20/22 12/21/22 12/21/22 18:59 06:59 18:59 Intake Total 2150 340 236 Output Total 550 4000 1200 Balance 1600 -0430 -964 Weight 78.9 kg Intake: IV 2150 Intake, IV Titration 340 Amount Lactated Ringers 1,000 ml 240 @ 20 mls/hr IV .Q24H NELLIE Rx#:[id number] ceFAZolin 2 gm In Sodium 100 Chloride 0.9% 50 ml @ 100 mls/hr IVPB Q8H NELLIE Rx#: [id number] Oral 236 Output: Urine 450 3250 1200 Uretheral (Dunn) 1700 Post Void Residual 750 Estimated Blood Loss 100 Other: Voiding Method Urinal Indwelling Catheter - Labs CBC & Chem 7: 12/21/22 05:36 12/21/22 05:36 Labs: Abnormal Lab Results - Last 24 Hours (Table) 12/21/22 12/21/22 12/21/22 Range/Units 05:36 05:36 05:36 WBC 12.9 H (3.8-10.6) k/uL RBC 4.11 L (4.30-5.90) m/uL Hct 37.5 L (39.0-53.0) % Sodium 130 L (137-145) mmol/L Chloride 97 L (98-107) mmol/L Glucose 122 H (74-99) mg/dL Osmolality 278 L (280-301) mosm/kg
[2022-12-21 15:38] LABS: African American GFR (CKD) >90 (>60 ml/min/1.73 sqM); Anion Gap 3 mmol/L; Blood Urea Nitrogen 14 mg/dL (9-20); Calcium 8.5 mg/dL (8.4-10.2); Carbon Dioxide 32 mmol/L (22-30); Chloride 100 mmol/L (98-107); Glucose 114 mg/dL (74-99); Non-African American GFR(CKD) >90 (>60 ml/min/1.73 sqM); Sodium 135 mmol/L (137-145)
[2022-12-21] MEDS: ALBUTEROL NEBULIZED 2.5 MG/3 ML INHALATION PRN (16:04)
--- NOTE | 2022-12-21 20:32 | P.GSCN ---
History of Present Illness Consult date: 12/21/22 Reason for Consult: Urinary retention Requesting physician: Michael García History of present illness: The patient is a 42-year-old white male who underwent minimally invasive L4-L5 decompression and fusion for spondylolisthesis yesterday. He has developed postoperative urinary retention. I am consulted for this reason. He denies any history of voiding dysfunction. He states that he was treated for UTI in 2016. Review of Systems - Genitourinary Reports as per HPI Past Medical History Past Medical History: Asthma, Hypertension, Skin Disorder Additional Past Medical History / Comment(s): ECZEMA. CHRONIC BACK PAIN. BRADYCARDIA AND ECTOPIC BEATS History of Any Multi-Drug Resistant Organisms: None Reported Past Surgical History: Appendectomy, Orthopedic Surgery Additional Past Surgical History / Comment(s): LEFT SHOULDER SURG. X3. EYE SURG. Past Anesthesia/Blood Transfusion Reactions: No Reported Reaction Past Psychological History: No Psychological Hx Reported Smoking Status: Never smoker Past Alcohol Use History: Occasional Past Drug Use History: None Reported - Past Family History Mother Family Medical History: No Reported History Medications and Allergies Home Medications Medication Instructions Recorded Confirmed Type Albuterol Inhaler [Ventolin Hfa 1 puff INHALATION DIRECTED PRN 12/15/22 12/20/22 History Inhaler] Ascorbic Acid [Vitamin C] 250 mg PO DAILY 12/15/22 12/20/22 History Cyclobenzaprine [Flexeril] 10 mg PO TID PRN 12/15/22 12/20/22 History Hydrocodone/Acetaminophen 1 tab PO Q8H PRN 12/15/22 12/20/22 History [Hydrocodone/Acetaminophen 7.5-325] Lisinopril-Hctz 10-12.5 mg 1 tab PO DAILY 12/15/22 12/20/22 History [Zestoretic 10-12.5] Loratadine 10 mg PO DAILY 12/15/22 12/20/22 History Melatonin 10 mg PO HS 12/15/22 12/20/22 History Meloxicam [Mobic] 15 mg PO DAILY 12/15/22 12/20/22 History Mometasone Furoate [Asmanex 200 1 puff INHALATION DIRECTED 12/15/22 12/20/22 History MCG Hfa] Multivitamins, Thera [Multivitamin 1 tab PO DAILY 12/15/22 12/20/22 History (formulary)] Vitamin B Complex 1 each PO DAILY 12/15/22 12/20/22 History Allergies Allergy/AdvReac Type Severity Reaction Status Date / Time tramadol AdvReac severe Verified 12/20/22 09:50 mood swings Surgical - Exam Vital Signs Temp Pulse Resp BP Pulse Ox 98.4 F 61 18 139/84 99 12/20/22 09:53 12/20/22 09:53 12/20/22 09:53 12/20/22 09:53 12/20/22 09:53 - General well developed, well nourished, no distress - Respiratory normal respiratory effort - Genitourinary normal penis with no external lesions, testicles non-tender - Psychiatric oriented to time, oriented to person, oriented to place, speech is normal, memory intact Results - Labs 12/21/22 05:36 12/21/22 14:53 Abnormal Lab Results - Last 24 Hours (Table) 12/21/22 12/21/22 12/21/22 Range/Units 05:36 05:36 05:36 WBC 12.9 H (3.8-10.6) k/uL RBC 4.11 L (4.30-5.90) m/uL Hct 37.5 L (39.0-53.0) % Sodium 130 L (137-145) mmol/L Chloride 97 L (98-107) mmol/L Carbon Dioxide (22-30) mmol/L Glucose 122 H (74-99) mg/dL Osmolality 278 L (280-301) mosm/kg 12/21/22 Range/Units 14:53 WBC (3.8-10.6) k/uL RBC (4.30-5.90) m/uL Hct (39.0-53.0) % Sodium 135 L (137-145) mmol/L Chloride (98-107) mmol/L Carbon Dioxide 32 H (22-30) mmol/L Glucose 114 H (74-99) mg/dL Osmolality (280-301) mosm/kg Diabetes panel 12/21/22 12/21/22 Range/Units 05:36 14:53 Sodium 130 L 135 L (137-145) mmol/L Potassium 3.8 4.0 (3.5-5.1) mmol/L Chloride 97 L 100 (98-107) mmol/L Carbon Dioxide 28 32 H (22-30) mmol/L BUN 16 14 (9-20) mg/dL Creatinine 0.82 0.80 (0.66-1.25) mg/dL Glucose 122 H 114 H (74-99) mg/dL Calcium 8.6 8.5 (8.4-10.2) mg/dL Calcium panel 12/21/22 12/21/22 Range/Units 05:36 14:53 Calcium 8.6 8.5 (8.4-10.2) mg/dL Pituitary panel 12/21/22 12/21/22 Range/Units 05:36 14:53 Sodium 130 L 135 L (137-145) mmol/L Potassium 3.8 4.0 (3.5-5.1) mmol/L Chloride 97 L 100 (98-107) mmol/L Carbon Dioxide 28 32 H (22-30) mmol/L BUN 16 14 (9-20) mg/dL Creatinine 0.82 0.80 (0.66-1.25) mg/dL Glucose 122 H 114 H (74-99) mg/dL Calcium 8.6 8.5 (8.4-10.2) mg/dL Adrenal panel 12/21/22 12/21/22 Range/Units 05:36 14:53 Sodium 130 L 135 L (137-145) mmol/L Potassium 3.8 4.0 (3.5-5.1) mmol/L Chloride 97 L 100 (98-107) mmol/L Carbon Dioxide 28 32 H (22-30) mmol/L BUN 16 14 (9-20) mg/dL Creatinine 0.82 0.80 (0.66-1.25) mg/dL Glucose 122 H 114 H (74-99) mg/dL Calcium 8.6 8.5 (8.4-10.2) mg/dL Assessment and Plan Assessment: The patient developed urinary retention following lumbar fusion surgery. He currently has an indwelling Dunn catheter in place, draining clear yellow urine. (1) Retention of urine, unspecified Current Visit: Yes Status: Acute Code(s): R33.9 - RETENTION OF URINE, UNSPECIFIED SNOMED Code(s): 960534565 Plan: Continue Dunn catheter drainage. Continue tamsulosin. The Dunn catheter may be removed for a voiding trial in the morning of 12/23/2022, assuming he remains in the hospital. If he is to be discharged home tomorrow, he should go home with the Dunn catheter and be given a prescription for tamsulosin. He will follow up with me in the afternoon of 12/26/2022. He was instructed to remove his catheter approximately 8 hours prior to that appointment. Time with Patient: Greater than 30
[2022-12-21] MEDS: MELATONIN 5 MG TABLET PO SCH (20:48)
[2022-12-21] MEDS: SENNOSIDES-DOCUSATE SODIUM 1 EACH TAB PO SCH (20:48)
[2022-12-22] MEDS: ACETAMINOPHEN TAB 325 MG TAB PO SCH ×5 (00:04→23:22)
[2022-12-22] MEDS: HYDROmorphone 1 MG/ML 1 ML SYRINGE IVP PRN ×3 (00:05→07:47)
[2022-12-22] MEDS: HYDROcodone/APAP 10-325MG 1 EACH TAB PO PRN (04:14)
--- NOTE | 2022-12-22 08:10 | P.PN ---
Subjective Progress Note Date: 12/22/22 Principal diagnosis: 1. L4-L5 grade 1 spondylolisthesis, unstable 2. lower extremity radiculopathy with paresthesias 3. mechanical low back pain 4. lower extremity weakness Patient seen and examined this morning. Patient was resting comfortably in bed. Patient continuing with low back pain, rating 8.5/10. Medications have been adjusted. Kwon cath remains patent. Trial void in the morning of 12/23/22. Patient is to increase his activity today, we discussed being up in the chair for all meals. Encouraged patient to continue with physical therapy today. Surgical dressings are CDI. Prescription placed in chart for rolling walker. We are working on getting a brace that our office had ordered through [facility]. Patient does not necessarily need brace for activity. Patient has been afebrile, denies nausea/vomiting, or chest pain. Objective - Vital Signs Vital signs: Vital Signs Temp 98.7 F 12/22/22 01:42 Pulse 89 12/22/22 01:42 Resp 16 12/22/22 01:42 BP 126/67 12/22/22 01:42 Pulse Ox 94 L 12/22/22 01:42 FiO2 Intake & Output 12/21/22 12/22/22 12/22/22 18:59 06:59 18:59 Intake Total 354 1190 Output Total 2150 1525 Balance -1796 -335 Intake: Intake, IV Titration 200 Amount Lactated Ringers 1,000 ml 200 @ 20 mls/hr IV .[facility]H [facility] Rx#:[id number] Oral 354 990 Output: Urine 2150 1525 Uretheral (Kwon) 875 Other: Voiding Method Indwelling Catheter Indwelling Catheter - Exam Physical Examination General: The patient is awake and alert, in no acute distress Skin: Skin is warm and dry with no obvious rashes or lesions. Surgical incisions lumbar spine, dressings are clean dry and intact. Eye: Pupils are equal, round and reactive to light, extra-ocular movements are intact; there is normal conjunctiva bilaterally. Neck: The neck is supple, there is no tenderness and ROM intact. Cardiovascular: There is a regular rate and rhythm. No murmur, rub or gallop is appreciated. Respiratory: Lungs are clear to auscultation, respirations are non-labored, breath sounds are equal. Gastrointestinal: Soft, non-distended, non-tender abdomen. Back: There is no tenderness to palpation in the midline, paralumbar, parathoracic or buttocks region. There is no obvious deformity . Musculoskeletal: ROM limited secondary to pain and stiffness from surgical procedure. Muscle strength in all major muscle groups of bilateral upper extremities 5/5, bilateral lower extremities 4/5. Neurological: CN 2-12 intact. There are no obvious motor or sensory deficits. Movement and coordination equal and intact. Sensory exam to light touch intact C5-T1 and intact from L2-S1. Reflexes 2/4 in bilateral upper and lower extremities. Negative Hoffmans, babinski, and clonus signs. Psychiatric: Cooperative, appropriate mood & affect, normal judgment. - Labs CBC & Chem 7: 12/21/22 05:36 12/21/22 14:53 Labs: Abnormal Lab Results - Last 24 Hours (Table) 12/21/22 12/21/22 12/21/22 Range/Units 05:36 12:35 14:53 Sodium 135 L (137-145) mmol/L Carbon Dioxide 32 H (22-30) mmol/L Glucose 114 H (74-99) mg/dL Osmolality 278 L (280-301) mosm/kg Ur Random Sodium <20 L (40-220) mmol/L Assessment and Plan Assessment: Postop day 2: L4-L5 Minimally invasive TLIF 1. L4-L5 grade 1 spondylolisthesis, unstable 2. lower extremity radiculopathy with paresthesias 3. mechanical low back pain 4. lower extremity weakness Plan: -Appreciate funeral pre need consultant and team management. -Activity: Ambulate QID, OOB all meals, up and about, limit lifting bending twisting to less than 5 lbs. Use walker or cane if needed for stability. -Daily PT/OT, increase ambulation strength and balance. -Pain control: Medications adjusted -Meds: reviewed -GI ppx: senna, Miralax, MOM -Maintain kwon at this time. Trial void in the morning of 12/23/22. -DVT PPX: Heparin -Hygiene: Shower today. Maintain dressing clean and dry. Meticulous cleaning after BMs away from the incision site -Encourage IS 10x/hr -Dispo: Anticipate discharge home tomorrow with homecare within the next 24hrs *I reviewed and discussed this case with my attending Dr. García, whom has reviewed this chart and films and is in agreement with assessment and plan of care as outlined above. I have personally seen and examined the patient, performed the documentation and the assessment and plan as written. Number of minutes spent on the visit: 15m.
[2022-12-22] MEDS: LORATADINE 10 MG TAB PO SCH (09:00)
[2022-12-22] MEDS: MAGNESIUM HYDROXIDE 2,400 MG/10 ML CUP PO SCH (09:00)
[2022-12-22] MEDS: TAMSULOSIN 0.4 MG CAP.ER.24H PO SCH (09:01)
[2022-12-22] MEDS: lisinopriL 10 MG TAB PO SCH (09:01)
[2022-12-22] MEDS: GABAPENTIN 300 MG CAP PO SCH ×3 (09:01→21:11)
[2022-12-22] MEDS: CYCLOBENZAPRINE 10 MG TAB PO SCH ×3 (09:01→21:11)
[2022-12-22] MEDS: oxyCODONE-APAP 5-325MG 1 EACH TAB PO PRN ×4 (09:09→21:11)
[2022-12-22] MEDS: BUDESONIDE 1 MG/2 ML NEBU INHALATION SCH ×2 (09:49→20:20)
--- NOTE | 2022-12-22 11:16 | P.PN ---
Subjective Progress Note Date: 12/22/22 Subjective: Issue seen and examined at bedside. No acute events overnight. He claims that still has significant back pain. Continues to have a urinary catheter in place. No bowel movements and not passing gas at the moment. Feels slight abdominal fullness. Is still requiring some assistance to get out of the bed. Denies any chest pain, shortness of breath. Pertinent positives and negatives as discussed above, a complete review of systems was performed and all other systems are negative. Vitals Signs Reviewed. General: nontoxic, no distress, appears at stated age Derm: warm, dry, back not observed Head: atraumatic, normocephalic, symmetric Eyes: EOMI, no lid lag, anicteric sclera Mouth: no lip lesion, mucus membranes moist Cardiovascular: S1S2 reg, no murmur Lungs: CTA bilateral, no rhonchi, no rales , no accessory muscle use Abdominal: soft, nontender to palpation, no guarding, no appreciable organomegaly Ext: no gross muscle atrophy, no edema, no contractures Neuro: CN II-XI grossly intact, no focal neuro deficits Psych: Alert, oriented, appropriate affect Data Reviewed Today: Pertinent Labs: Sodium 135, bicarb 32, creatinine 0.8, urine sodium less than 20 Assessment and Plan: Hyponatremia, euvolemic Urinary retention Hypertension Asthma without exacerbation History of bradycardia Eczema Chronic back pain -Hyponatremia likely in the setting of SIADH due to pain, sodium now improved -Urology consulted for urinary retention, currently has a urinary catheter in place, possibly discontinue tomorrow, also on Flomax -Continue lisinopril 10 mg daily, loratadine 10 mg daily, restarted home hydrochlorothiazide 12.5 daily -Continue albuterol as needed, and mometasone -On oral Tylenol, oral Percocet, and IV Dilaudid as needed for pain -SCDs -Orthospine note reviewed, possible discharge tomorrow with home care Thank you for allowing us to participate in the care of this pleasant patient. Do not hesitate to contact us with questions. Someone can be reached from the [facility] hospitalist group all hours of the day at [phone] or via perfect serve. Objective - Vital Signs Vital signs: Vital Signs Temp 98.1 F 12/22/22 07:24 Pulse 92 12/22/22 10:00 Resp 15 12/22/22 07:24 BP 143/79 12/22/22 07:24 Pulse Ox 96 12/22/22 07:24 FiO2 Intake & Output 12/21/22 12/22/22 12/22/22 18:59 06:59 18:59 Intake Total 354 1190 Output Total 2150 1525 550 Balance -7411 -577 -550 Intake: Intake, IV Titration 200 Amount Lactated Ringers 1,000 ml 200 @ 20 mls/hr IV .Q24H [facility] Rx#:[id number] Oral 354 990 Output: Urine 2150 1525 550 Uretheral (Dunn) 875 550 Other: Voiding Method Indwelling Catheter Indwelling Catheter Indwelling Catheter - Labs CBC & Chem 7: 12/21/22 05:36 12/21/22 14:53 Labs: Abnormal Lab Results - Last 24 Hours (Table) 12/21/22 12/21/22 12/21/22 Range/Units 05:36 12:35 14:53 Sodium 135 L (137-145) mmol/L Carbon Dioxide 32 H (22-30) mmol/L Glucose 114 H (74-99) mg/dL Osmolality 278 L (280-301) mosm/kg Ur Random Sodium <20 L (40-220) mmol/L
[2022-12-22] MEDS: hydroCHLOROthiazide 12.5 MG CAP PO SCH (11:48)
--- NOTE | 2022-12-22 12:58 | CDI ---
Documentation Clarification Form Date: 12/22/2022 12:39:48 PM From: Macey Wilson RN, CCDS Email: [email or web address] Admit Date: 12/20/2022 9:15:00 AM Patient Name: Bobby Adler Visit Number: [id number] Discharge Date: ATTENTION: The Clinical Documentation Specialists (CDI) and [facility] Coding Staff appreciate your assistance in clarifying documentation. Please respond to the clarification below the line at the bottom and electronically sign. The CDI & [facility] Coding staff will review the response and follow-up if needed. Please note: Queries are made part of the Legal Health Record. If you have any questions, please contact the author of this message via ITS. Dr. Gerald Laguna Postoperative urinary retention is documented in the 12/21 consult note and patient is s/p lumbar fusion. Additional clarification is requested regarding the relationship, if any, that exists between the diagnosis and the procedure. Patients Admitting Diagnosis: L4-5 grade I-II spondylolisthesis, unstable Post-Operative Diagnosis: L4-5 grade I-II spondylolisthesis, unstable Procedure performed: L4-5 posterolateral and interbody fusion. L4-5 instrumentation. History/Risk Factors: HTN, asthma spondylolisthesis, radiculopathy and chronic low back pain Clinical Indicators: 12/21 Ortho Attending: "Patient reports that he has had some urinary retention and has been straight cathed x2, and now has an indwelling Dunn catheter present. Urology Consult: "underwent minimally invasive L4-L5 decompression and fusion for spondylolisthesis yesterday. He has developed postoperative urinary retention. I am consulted for this reason. He denies any history of voiding dysfunction. 12/22 IM: "Urology consulted for urinary retention, currently has a urinary catheter in place, possibly discontinue tomorrow, also on Flomax." Treatment: Straight cath x2 followed by Dunn catheter insertion. Flomax 0.4mg po daily Urology Consult: as above What relationship, if any, exists between the diagnosis of postop urinary retention and the procedure: [ ] Urinary retention is a complication of surgical procedure [ x ] Urinary retention is an expected outcome of the surgical procedure related to anesthesia [ ] Urinary retention is related to patients co-morbid conditions & not a complication of the procedure [ ] Other please specify ____ [ ] Unable to determine MTDD
[2022-12-22] MEDS: ALBUTEROL NEBULIZED 2.5 MG/3 ML INHALATION PRN (13:17)
[2022-12-22] MEDS ORDERED: MAGNESIUM HYDROXIDE 2,400 MG/10 ML CUP PO PRN (14:08)
[2022-12-22] MEDS: HYDROmorphone 0.5 MG/0.5 ML SYRINGE IVP PRN (14:22)
[2022-12-22] MEDS: SENNOSIDES-DOCUSATE SODIUM 1 EACH TAB PO SCH (17:34)
[2022-12-22] MEDS ORDERED: ONDANSETRON 4 MG/2 ML VIAL IVP PRN (17:55)
[2022-12-22] MEDS: LACTATED RINGERS 1,000 ML IV SCH (19:39)
[2022-12-22] MEDS: FLUTICASONE 220 MCG INHALER INHALATION SCH (20:32)
[2022-12-22] MEDS: MELATONIN 5 MG TABLET PO SCH (21:11)
[2022-12-23] MEDS: oxyCODONE-APAP 5-325MG 1 EACH TAB PO PRN ×3 (02:06→13:36)
[2022-12-23] MEDS: HYDROmorphone 0.5 MG/0.5 ML SYRINGE IVP PRN (03:28)
[2022-12-23] MEDS: ACETAMINOPHEN TAB 325 MG TAB PO SCH ×2 (06:29→09:16)
[2022-12-23] MEDS: LACTATED RINGERS 1,000 ML IV SCH (07:36)
[2022-12-23] MEDS: MAGNESIUM HYDROXIDE 2,400 MG/10 ML CUP PO SCH (08:05)
--- NOTE | 2022-12-23 08:16 | P.PN ---
Subjective Progress Note Date: 12/23/22 Principal diagnosis: 1. L4-L5 grade 1 spondylolisthesis, unstable 2. lower extremity radiculopathy with paresthesias 3. mechanical low back pain 4. lower extremity weakness Patient seen and examined this morning. Patient was sitting up in chair. He states his pain is managed on current regimen. Kwon cath is to be removed this morning for trial void. If pateint is not able to urinate on is own, replace kwon catheter and patient is to follow up with Dr. Schwab on 12/26/22. Patient reports he was up with PT yesterday and performed stairs. He states he tolerated activity well. Surgical dressings are CDI. We are working on getting a brace that our office had ordered through [facility]. Patient does not necessarily need brace for activity. Patient has been afebrile, denies nausea/vomiting, or chest pain. Objective - Vital Signs Vital signs: Vital Signs Temp 98.7 F 12/23/22 07:11 Pulse 100 12/23/22 07:11 Resp 18 12/23/22 07:11 BP 132/72 12/23/22 07:11 Pulse Ox 96 12/23/22 07:11 FiO2 Intake & Output 12/22/22 12/23/22 12/23/22 18:59 06:59 18:59 Intake Total 920 Output Total 550 2850 Balance -550 -1930 Intake: Intake, IV Titration 200 Amount Lactated Ringers 1,000 ml 200 @ 20 mls/hr IV .Q24H [facility] Rx#:[id number] Oral 720 Output: Urine 550 2850 Uretheral (Kwon) 550 0 Other: Voiding Method Indwelling Catheter Indwelling Catheter - Exam Physical Examination General: The patient is awake and alert, in no acute distress Skin: Skin is warm and dry with no obvious rashes or lesions. Surgical incisions lumbar spine, dressings are clean dry and intact. Eye: Pupils are equal, round and reactive to light, extra-ocular movements are intact; there is normal conjunctiva bilaterally. Neck: The neck is supple, there is no tenderness and ROM intact. Cardiovascular: There is a regular rate and rhythm. No murmur, rub or gallop is appreciated. Respiratory: Lungs are clear to auscultation, respirations are non-labored, breath sounds are equal. Gastrointestinal: Soft, non-distended, non-tender abdomen. Back: There is no tenderness to palpation in the midline, paralumbar, parathoracic or buttocks region. There is no obvious deformity . Musculoskeletal: ROM limited secondary to pain and stiffness from surgical procedure. Muscle strength in all major muscle groups of bilateral upper extremities 5/5, bilateral lower extremities 4/5. Neurological: CN 2-12 intact. There are no obvious motor or sensory deficits. Movement and coordination equal and intact. Sensory exam to light touch intact C5-T1 and intact from L2-S1. Reflexes 2/4 in bilateral upper and lower extremities. Negative Hoffmans, babinski, and clonus signs. Psychiatric: Cooperative, appropriate mood & affect, normal judgment. - Labs CBC & Chem 7: 12/21/22 05:36 12/21/22 14:53 Assessment and Plan Assessment: Postop day 3: L4-L5 Minimally invasive TLIF 1. L4-L5 grade 1 spondylolisthesis, unstable 2. lower extremity radiculopathy with paresthesias 3. mechanical low back pain 4. lower extremity weakness Plan: -Appreciate industrial methods consultant and team management. -Activity: Ambulate QID, OOB all meals, up and about, limit lifting bending twisting to less than 5 lbs. Use walker or cane if needed for stability. -Daily PT/OT, increase ambulation strength and balance. -Pain control: Medications adjusted -Meds: reviewed -GI ppx: senna, Miralax, MOM -Trial void this morning, 12/23/22, if patient is not able to urinate on his own, he is to follow up with Dr. Schwab on 12/26/22. He is to remove kwon 6 hrs prior to his appt. Please provide patient with proper items to remove kwon. -DVT PPX: Heparin -Hygiene: Shower today. Maintain dressing clean and dry. Meticulous cleaning after BMs away from the incision site -Encourage IS 10x/hr -Dispo: Anticipate discharge home today with homecare *I reviewed and discussed this case with my attending Dr. García, whom has reviewed this chart and films and is in agreement with assessment and plan of care as outlined above. I have personally seen and examined the patient, performed the documentation and the assessment and plan as written. Number of minutes spent on the visit: 15m.
--- NOTE | 2022-12-23 08:44 | P.DS ---
Providers Date of admission: 12/20/22 09:15 Expected date of discharge: 12/23/22 Attending physician: Michael García DO Consults: 12/20/22 15:18 Consult Physician Routine Consulting Provider: Bruna Chawla Consult Reason/Comments: Medical Management s/p L4-L5 MIS TLIF Do you want consulting provider notified?: Yes 12/21/22 08:00 Consult Physician Routine Consulting Provider: Abdi Schwab Consult Reason/Comments: Urinary retention Do you want consulting provider notified?: Yes Primary care physician: [facility] Course: Hospital Course: The patient was evaluated preoperatively and found to have the diagnosis of L4- L5 spondylolisthesis. They underwent appropriate preoperative care and were willing to undergo the intended procedure. They underwent a successful L4-L5 minimally invasive TLIF, were recovered appropriately and sent to the floor. While on the floor they worked with physical therapy, occupational therapy and nursing to enhance their recovery experience. Their pain was well controlled through their stay and they were started on appropriate medications, DVT ppx modalities, activity and dietary needs. Daily labs were monitored closely, and transfusions were only used when necessary. Medicine as well as other consulting services have made their input and have helped with our team approach and multidisciplinary care. PT milestones have been met and passed and they have made the recommendation of home with home care for this patient and treating providers agree with this care path. The patient will be discharged home with appropriate medications, instructions and follow-up information and in stable condition. Patient Condition at Discharge: Good Plan - Discharge Summary Discharge Rx Participant: Yes New Discharge Prescriptions: New Cyclobenzaprine [Flexeril] 10 mg PO TID PRN #90 tab PRN Reason: Muscle Spasm oxyCODONE-APAP 5-325MG [Percocet 5-325 mg] 1 tab PO Q4HR PRN #42 tab PRN Reason: Pain Sennosides/Docusate Sodium [Senna Plus 8.6-50 mg Tablet] 1 each PO DAILY PRN #20 tablet PRN Reason: Constipation cefaDROXiL [Duricef] 500 mg PO Q12HR #10 cap Tamsulosin HCl [Flomax] 0.4 mg PO DAILY #14 capsule No Action Mometasone Furoate [Asmanex 200 MCG Hfa] 1 puff INHALATION DIRECTED Melatonin 10 mg PO HS Albuterol Inhaler [Ventolin Hfa Inhaler] 1 puff INHALATION DIRECTED PRN PRN Reason: Dyspnea Hydrocodone/Acetaminophen [Hydrocodone/Acetaminophen 7.5-325] 1 tab PO Q8H PRN PRN Reason: Pain Cyclobenzaprine [Flexeril] 10 mg PO TID PRN PRN Reason: Pain Ascorbic Acid [Vitamin C] 250 mg PO DAILY Vitamin B Complex 1 each PO DAILY Multivitamins, Thera [Multivitamin (formulary)] 1 tab PO DAILY Meloxicam [Mobic] 15 mg PO DAILY Lisinopril-Hctz 10-12.5 mg [Zestoretic 10-12.5] 1 tab PO DAILY Loratadine 10 mg PO DAILY Discharge Medication List Albuterol Inhaler [Ventolin Hfa Inhaler] 1 puff INHALATION DIRECTED PRN 12/15/22 [History] Ascorbic Acid [Vitamin C] 250 mg PO DAILY 12/15/22 [History] Cyclobenzaprine [Flexeril] 10 mg PO TID PRN 12/15/22 [History] Hydrocodone/Acetaminophen [Hydrocodone/Acetaminophen 7.5-325] 1 tab PO Q8H PRN 12/15/22 [History] Lisinopril-Hctz 10-12.5 mg [Zestoretic 10-12.5] 1 tab PO DAILY 12/15/22 [History] Loratadine 10 mg PO DAILY 12/15/22 [History] Melatonin 10 mg PO HS 12/15/22 [History] Meloxicam [Mobic] 15 mg PO DAILY 12/15/22 [History] Mometasone Furoate [Asmanex 200 MCG Hfa] 1 puff INHALATION DIRECTED 12/15/22 [History] Multivitamins, Thera [Multivitamin (formulary)] 1 tab PO DAILY 12/15/22 [History] Vitamin B Complex 1 each PO DAILY 12/15/22 [History] Cyclobenzaprine [Flexeril] 10 mg PO TID PRN #90 tab 12/23/22 [Rx] Sennosides/Docusate Sodium [Senna Plus 8.6-50 mg Tablet] 1 each PO DAILY PRN #20 tablet 12/23/22 [Rx] Tamsulosin HCl [Flomax] 0.4 mg PO DAILY #14 capsule 12/23/22 [Rx] cefaDROXiL [Duricef] 500 mg PO Q12HR #10 cap 12/23/22 [Rx] oxyCODONE-APAP 5-325MG [Percocet 5-325 mg] 1 tab PO Q4HR PRN #42 tab 12/23/22 [Rx] Follow up Appointment(s)/Referral(s): Michael García DO [Doctor of Osteopathic Medicine] - 01/04/23 11:20 am Activity/Diet/Wound Care/Special Instructions: [facility] will arrange home care. Please call [phone] if you do not hear from a home care agency within 48 hours of discharge. Spine Discharge and Recovery Instructions Date of Surgery: 12/20/2022 Diagnosis: Lumbar spondylolisthesis Procedure: L4-5 minimally invasive TLIF Medications: See medication list All medication refills should be obtained through your primary care doctor or your clinic spine surgeon. Please discuss prescription refills at your follow up appointment. Do not call the hospital for medication refills. Dressing: Leave your dressing in place for a total of 5 days post operatively. Then you may remove your dressing and leave open to air. Keep the area clean and if not able to keep area clean, then cover with sterile gauze and tape. Showering: You may shower 3 days after your procedure allowing soap and water to run over incision. Do not scrub. Do not soak. Blot dry. Follow up: Please confirm a follow up appointment with your surgeon 3 weeks post operatively. Please make an appointment to follow up with your PCP in 1-2 weeks after surgery for evaluation 3 phase, 3-week plan POST OP WEEKS 1-3 1. Lifting/carrying/pushing/pulling limited to less than 5 pounds. 2. Do not sit for longer than 15 minutes at one time. Get up and walk around. Prolonged sitting is NOT advised. If you lay down, see if you can tolerate laying down on you front (belly side) 3. Walk for periods of 15 minutes = 1 mile but no longer; do it multiple times times each day. 4. Ice your low back after activity. POST OP WEEKS 3-6 1. Lifting limited to less than 20 pounds. 2. Do not sit for longer than 30 minutes at a time. Frequently change positions. Use a sit-to stand workstation or take frequent breaks from sitting if you have returned to work. 3. Walk for 30 minutes each day. If possible, do these three or more times a day POST OP WEEKS 6+ At your 6-week appointment we will give you a physical therapy referral to focus on a core stabilization and strengthening program. You should also work on leg & buttock strengthening, hamstring & quadriceps stretching, and continue a low impact aerobic activity program such as swimming, walking, or riding a stationary bicycle. During the initial 6 weeks after your surgery, you are at the highest risk of re-injuring your spine. You should generally avoid BLTs (bending, lifting and twisting combination motions) and follow the above guidelines to reduce the chance of reinjury. You can anticipate post op appointments in our office at approximately 3 weeks and 6 weeks after your surgery. INCISION CARE: If your incision is not draining you do NOT need to cover it with a dressing. Keep your incision clean, dry and intact. In most cases, we apply skin glue, valerie or sutures to the incision at the time of surgery. This will be like a crust or have the appearance of a scab and will fall off in time on its own. The stitches or valerie need to be removed at 3 weeks post op appointment. You may begin to shower 3 days after surgery (this allows the glue to conde well). However, please avoid scrubbing the incision site or peeling off any of the skin glue. This will ensure optimal healing of your incision. Also, during this time avoid soaking the incision area in water - this includes swimming pools, hot tubs or baths. No ointments, lotions or oils on the incision until your surgeon allows. Leave valerie, sutures or glue in place. Neurological dysfunction that comes on suddenly can also be a sign of a stroke. Below some common symptoms of a stroke are listed: B - balance difficulty such as sudden onset walking or leaning to one side - NEW E - eye problem such as sudden double vision or trouble seeing on one side - NEW F - Facial weakness or numbness on one side - NEW A - Arm or leg weakness or numbness on one side - NEW S - Slurred speech or difficulty with word finding - NEW T - Time is BRAIN! Call 911 as soon as you recognize these symptoms Diet: Consume a regular diet rich in vegetables and lean protein such as chicken or fish. You should consume in a ratio of approximately 20% fats|40% carbohydrates|40%protein. Vegetables, sweet potatoes, brown rice or quinoa are examples of good carbohydrates. Chips, white bread, cookies and sweets/sugar are examples of bad carbohydrates. Limit your bad carbs, go wild with good carbs. "Life's Simple 7" Guidelines as per [place] [employer] These will help you reclaim your life after surgery and sprinkler helper in your recovery, keeping in mind your restrictions. (1) Get Active. Physical activity can help people lose weight, control high blood pressure and cholesterol, feel emotionally better, and sleep better. (2) Control Cholesterol. Avoid a diet high in saturated fat, trans fat, & cholesterol. Limit whole milk & cream, ice cream, butter, egg yolks, processed meats (like sausage and hot dogs), and fatty meats. Choose healthy foods that are low in saturated fat, trans fat and cholesterol which include: Fruits and vegetables, fiber rich grain products (like whole grain pasta and brown rice), lean meat such as chicken, fish, nuts, seeds, and legumes. (3) Eat Better. Eat small portions. Shop at the grocery with a list and do not stray from it. Tips for a healthy diet include: Limit sodium intake to less than 1500mg daily, avoid prepackaged, processed, and fast foods, choose a diet rich in fruits, vegetables, and whole grain, high fiber foods, and limit saturated & cholesterol in your diet. (4) Manage Blood Pressure. If you have high blood pressure, you should have a cuff at home so that you can check your blood pressure regularly. Be sure you have a good cuff. An arm one is generally better than a wrist one. Bring the cuff to a doctor's appointment to validate that the measurements that your cuff are taking are accurate. Take your blood pressure twice daily when you are sitting down and relaxing. Record the numbers in a log and bring this log with you to your doctors' appointments. (5) Lose Weight if your BMI is above 25. A healthy BMI is between 19-25. To calculate Your BMI, you may use a Standard BMI Calculator on the NIH BMI website: <www.nhlbi.nih.gov/guidelines/obesity/BMI/bmicalc.htm>. Weigh oneself daily. If you are overweight, set a goal to lose weight. A pound a week loss if needed is a good target. (6) Reduce Blood Sugar. Limit foods and liquids with "added sugars." (Added sugars include sucrose, fructose, glucose, maltose, dextrose, high fructose corn syrup, corn syrup, concentrated fruit juice and honey). (7) Stop Smoking. If you smoke, quitting smoking is one of the best things that you can do for your health. Smoking increases your risk of heart attack, stroke, and peripheral vascular disease, which is a build-up of plaque in your arteries. Please discard all the cigarettes and lighters in your house. Have a plan for what you will do when you have the urge to smoke. Direct and second- hand smoke shortens your life as well as the lives of your family, friends and others around you. For your health and the health of those around you, please consider quitting! Proper Bending Body Mechanics: Maintain a wide stance with one foot slightly in front of the other. Keep your back straight. Bend utilizing the strength in your hips and knees. Do not bend at the waist. Maintain the lifted object at your waist-level close to your body. Avoid lifting weight that causes immediately pain or pain anywhere in the body afterwards. Smoking/Nicotine If there was ever one thing that you could do to increase your overall health, decrease your risk of cardiovascular problems by about 39% the second you make the choice, it is to STOP SMOKING. Your body's most instant gratification is the second you stop smoking. We have all heard the studies, read the articles but it is true, smoking is extremely bad for your overall health, and moreover it is detrimental to your bone health. Nicotine, IN ANY FORM, kills bone cells, prevents your body from healing fractures, and significantly prolongs healing after surgery. In spine surgery specifically, it increases your risk of not healing your bones to create a fusion and increases your risk of having a revision surgery due to this up to 60%. I know it is hard. I know it feels impossible. But there are ways. Take control of your life. We are here to help you through it. And when you are ready, ask us and we can direct you to help if you desire. Use the START Plan to Quit Smoking (please visit the [employer] website listed below for more information): S = Set a quit date. Choose a date within the next 2 weeks, so you have enough time to prepare without losing your motivation to quit. If you mainly smoke at work, quit on the weekend, so you have a few days to adjust to the change. T = Tell family, friends, and co-workers that you plan to quit. Let your friends and family in on your plan to quit smoking and tell them you need their support and encouragement to stop. Look for a quit anaya who wants to stop smoking as well. You can help each other get through the rough times. A = Anticipate and plan for the challenges you'll face while quitting. Most people who begin smoking again do so within the first 3 months. You can help yourself make it through by preparing ahead for common challenges, such as nicotine withdrawal and cigarette cravings. R = Remove cigarettes and other tobacco products from your home, car, and work. Throw away all your cigarettes (no emergency pack!), lighters, ashtrays, and matches. Wash your clothes and freshen up anything that smells like smoke. Shampoo your car, clean your drapes and carpet, and steam your furniture. T = Talk to your doctor about getting help to quit. Your doctor can prescribe medication to help with withdrawal and suggest other alternatives. If you can't see a doctor, you can get many products over the counter at your local pharmacy or grocery store, including the nicotine patch, nicotine lozenges, and nicotine gum. Resources for Quitting Smoking: <https://www.[place].gov/documents/[facility]/Quit_Tobacco_Resources_for_patients_313 480_7.pdf> Supplementation: Take recommended dosages of Vitamin D and Calcium to help fortify your bones and help them to heal. See your health maintenance packet for dosages and recommended levels. DVT/VTE prophylaxis: You will be given compression stockings from the hospital. Wear these daily for the first two weeks after surgery. You may take them off at night. You may be prescribed a medication to help thin your blood. Take this as directed. If you are not prescribed this medication, early and frequent ambulation has been shown to be the best prophylaxis to deep vein thrombosis and sequelae related to this event. Discharge Disposition: HOME WITH HOME HEALTH SERVICES
[2022-12-23 09:07] VITALS: RESP 20
[2022-12-23] MEDS: hydroCHLOROthiazide 12.5 MG CAP PO SCH (09:16)
[2022-12-23] MEDS: GABAPENTIN 300 MG CAP PO SCH ×2 (09:16→16:23)
[2022-12-23] MEDS: LORATADINE 10 MG TAB PO SCH (09:17)
[2022-12-23] MEDS: CYCLOBENZAPRINE 10 MG TAB PO SCH ×2 (09:18→16:23)
[2022-12-23] MEDS: lisinopriL 10 MG TAB PO SCH (09:18)
[2022-12-23] MEDS: TAMSULOSIN 0.4 MG CAP.ER.24H PO SCH (09:18)
--- NOTE | 2022-12-23 10:11 | P.PN ---
Subjective Progress Note Date: 12/23/22 Subjective: Patient seen and examined at bedside. No acute events overnight. He claims that still has significant back pain but improving. Urinary catheter has been discontinued, no urine as of yet. No bowel movements and passing gas. Feels slight abdominal fullness. Denies any chest pain, shortness of breath. Pertinent positives and negatives as discussed above, a complete review of sys tems was performed and all other systems are negative. Vitals Signs Reviewed. General: nontoxic, no distress, appears at stated age Derm: warm, dry, back not observed Head: atraumatic, normocephalic, symmetric Eyes: EOMI, no lid lag, anicteric sclera Mouth: no lip lesion, mucus membranes moist Cardiovascular: S1S2 reg, no murmur Lungs: CTA bilateral, no rhonchi, no rales , no accessory muscle use Abdominal: soft, nontender to palpation, no guarding, no appreciable organomegaly Ext: no gross muscle atrophy, no edema, no contractures Neuro: CN II-XI grossly intact, no focal neuro deficits Psych: Alert, oriented, appropriate affect Data Reviewed Today: Temperature 98.7, pulse 100, respiratory rate 18, blood pressure 132/72, saturating at 96% on room air Assessment and Plan: Hyponatremia, euvolemic Urinary retention Hypertension Asthma without exacerbation History of bradycardia Eczema Chronic back pain -Hyponatremia 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 Thank you for allowing us to participate in the care of this pleasant patient. Do not hesitate to contact us with questions. Someone can be reached from the [facility] hospitalist group all hours of the day at [phone] or via perfect serve. Objective - Vital Signs Vital signs: Vital Signs Temp 98.7 F 12/23/22 07:11 Pulse 100 12/23/22 09:05 Resp 20 12/23/22 09:05 BP 132/72 12/23/22 07:11 Pulse Ox 96 12/23/22 07:11 FiO2 Intake & Output 12/22/22 12/23/22 12/23/22 18:59 06:59 18:59 Intake Total 920 Output Total 550 2850 1545 Balance -743 -4994 -5949 Intake: Intake, IV Titration 200 Amount Lactated Ringers 1,000 ml 200 @ 20 mls/hr IV .Q24H [facility] Rx#:[id number] Oral 720 Output: Urine 550 2850 1475 Uretheral (Dunn) 550 2050 Post Void Residual 70 Other: Voiding Method Indwelling Catheter Indwelling Catheter Indwelling Catheter - Labs CBC & Chem 7: 12/21/22 05:36 12/21/22 14:53
--- NOTE | 2022-12-23 10:54 | P.PN ---
Subjective Progress Note Date: 12/23/22 Principal diagnosis: Urinary retention The patient is a 42-year-old white male who underwent minimally invasive L4-L5 decompression and fusion for spondylolisthesis yesterday. He has developed postoperative urinary retention. We are consulted for this reason. He denies any history of voiding dysfunction. He states that he was treated for UTI in 2015. 12/22 Continue Dunn catheter drainage. Continue tamsulosin. The Dunn catheter may be removed for a voiding trial in the morning of 12/23/2022, assuming he remains in the hospital. If he is to be discharged home tomorrow, he should go home with the Dunn catheter and be given a prescription for tamsulosin. He will follow up with me in the afternoon of 12/26/2022. He was instructed to remove his catheter approximately 8 hours prior to that appointment. Objective - Vital Signs Vital signs: Vital Signs Temp 98.7 F 12/23/22 07:11 Pulse 100 12/23/22 09:05 Resp 20 12/23/22 09:05 BP 132/72 12/23/22 07:11 Pulse Ox 96 12/23/22 07:11 FiO2 Intake & Output 12/22/22 12/23/22 12/23/22 18:59 06:59 18:59 Intake Total 920 Output Total 550 2850 1545 Balance -550 -1930 -1545 Intake: Intake, IV Titration 200 Amount Lactated Ringers 1,000 ml 200 @ 20 mls/hr IV .Q24H [facility] Rx#:[id number] Oral 720 Output: Urine 550 2850 1475 Uretheral (Dunn) 550 2050 Post Void Residual 70 Other: Voiding Method Indwelling Catheter Indwelling Catheter Indwelling Catheter - Exam General: Well developed, well nourished. No acute distress. HEENT: Head is atraumatic, normocephalic. Lungs: Respirations even and nonlabored. : Dunn catheter draining clear yellow urine Skin: Warm and dry Neurologic: Alert and oriented 3 Psychiatric: Appropriate mood and affect. - Labs CBC & Chem 7: 12/21/22 05:36 12/21/22 14:53 Assessment and Plan Assessment: The patient is sitting up in the chair. His is present. His Dunn catheter is draining clear yellow urine. The patient's Dunn catheter will be removed by nursing staff this morning for a voiding trial. If the patient continues to retain urine, he may be sent home with the Dunn catheter, be given a prescription for Flomax, and will follow up with Dr. Schwab on 12/26. If the patient is able to urinate without difficulty and does not retain urine, there is no need to follow up at the office. (1) Retention of urine, unspecified Status: Acute Code(s): R33.9 - RETENTION OF URINE, UNSPECIFIED SNOMED Code(s): 451037120 Plan: - Remove Dunn catheter for a voiding trial - Check PVR - If he continues to retain urine, he may be discharged with a Dunn catheter and a prescription for Flomax Impression and plan of care have been directed as dictated by the signing physician. Marilyn Flores nurse practitioner acting as scribe for signing physician. Marilyn Flores [facility] Palliative Care/Urology Spectralink [id number] Email: [email or web address] I have personally seen and examined the patient, reviewed the documentation and agree with the assessment and plan as written. Number of minutes spent on the visit: 15. Abdi Schwab MD
[2022-12-23] MEDS ORDERED: NA PHOS,M-B/NA PHOS,DI-BA 133 ML ENEMA RECTAL STA (12:10)
--- NOTE | 2022-12-23 12:20 | P.PN ---
Progress Note - Text Progress Note Date: 12/23/22 LSO brace has been provided to the patient. Patient request to shower prior to discharging. Patient still has not had BM, he is passing gas. Informed patient this is not a requirement for discharge. Medications ordered to assist patient.
[2022-12-23] MEDS: BUDESONIDE 1 MG/2 ML NEBU INHALATION SCH (12:43)
[2022-12-23] MEDS: FLUTICASONE 220 MCG INHALER INHALATION SCH (12:44)
[2022-12-23] MEDS: bisacodyL 10 MG SUPP RECTAL STA ×2 (13:01→14:01)
[2022-12-23 14:47] VITALS: BP 155/80; PULSE 107; TEMP 97.4
== END 2022-12-23 16:29 | disposition home health service (06) | DRG 454 ==
LOC: OR 09:14 → OBSVTOIN 09:15 → 4SSUR 09:15 → OR 09:15 → 4SSUR 14:51
PROVIDERS: ADMIT Orthopaedic Surgery; ATTEND Orthopaedic Surgery
PROC: 01NB0ZZ Release Lumbar Nerve, Open Approach (ICD-10-PCS; 2022-12-20)
PROC: 0SG007J Fusion of Lumbar Vertebral Joint with Autologous Tissue Substitute, Posterior Approach, Anterior Column, Open Approach (ICD-10-PCS; 2022-12-20)
PROC: 0SG00AJ Fusion of Lumbar Vertebral Joint with Interbody Fusion Device, Posterior Approach, Anterior Column, Open Approach (ICD-10-PCS; principal; 2022-12-20 11:15)
PROC: 0SG00J1 Fusion of Lumbar Vertebral Joint with Synthetic Substitute, Posterior Approach, Posterior Column, Open Approach (ICD-10-PCS; principal; 2022-12-20 11:15)
DX: M43.16 Spondylolisthesis, lumbar region (principal); E22.2 Syndrome of inappropriate secretion of antidiuretic hormone; J45.909 Unspecified asthma, uncomplicated; I10 Essential (primary) hypertension; M40.209 Unspecified kyphosis, site unspecified; M47.26 Other spondylosis with radiculopathy, lumbar region; M51.36 Other intervertebral disc degeneration, lumbar region; R53.81 Other malaise; R33.8 Other retention of urine; G89.29 Other chronic pain; Z79.899 Other long term (current) drug therapy; Z79.1 Long term (current) use of non-steroidal anti-inflammatories (NSAID); Z88.5 Allergy status to narcotic agent
CPT/HCPCS: 72100; 72131; 80048; 80053; 83930; 83935; 84300; 85025; 85027; 85610; 85730; 86850; 86900; 86901; 94640